=== PATIENT | female | born 1950 ===

== ENCOUNTER → 2020-04-06 08:00 | Outpatient (CLI) | payer OTHER | END | disposition home or self-care (01) | LOC: LAB 08:00 → ADM 12:00 → EDSTATUS 04-14 12:00 → AMB-ENDOS 04-14 12:00 | PROVIDERS: ATTEND Surgery | DX: Z20.828 Contact with and (suspected) exposure to other viral communicable diseases (principal); R19.4 Change in bowel habit; Z80.0 Family history of malignant neoplasm of digestive organs; Z86.010 Personal history of colon polyps ==